=== PATIENT | male | born 1990 | race Caucasian/White ===

== ENCOUNTER 2017-06-07 07:29 | Emergency (ER) | payer MEDICAID, OTHER ==
[2017-06-07 07:34] VITALS: BMI 22.1
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
[2017-06-07] MEDS ORDERED: TDAP Vaccine 0.5 mL Syr IM ONE (07:43)
[2017-06-07] MEDS ORDERED: Amoxicillin-Clav 875-125 mg Tab PO STA (08:39)
--- NOTE | 2017-06-07 09:17 | CT ---
PROCEDURE: CT HEAD WITHOUT CONTRAST. HISTORY: fall, no recollection, nasal trauma COMPARISON: None available. TECHNIQUE: Axial computed tomography images were obtained through the head/brain without intravenous contrast. Radiation dose: Total exam DLP = 990.85 mGy-cm. This CT exam was performed using one or more of the following dose reduction techniques: Automated exposure control, adjustment of the mA and/or kV according to patient size, and/or use of iterative reconstruction technique. FINDINGS: HEMORRHAGE: No intracranial hemorrhage. BRAIN: No mass effect or edema. No atrophy or chronic microvascular ischemic changes. VENTRICLES: Unremarkable. No hydrocephalus. CALVARIUM: Unremarkable. PARANASAL SINUSES: Unremarkable as visualized. No significant inflammatory changes. MASTOID AIR CELLS: Unremarkable as visualized. No inflammatory changes. OTHER FINDINGS: Acute and displaced nasal bone fractures, incompletely visualized. Fracture extends to the bony nasal septum. Associated soft tissue swelling nasal turbinate region likely represents blood IMPRESSION: Acute fractures of the nasal bones and bony nasal septum. No acute intracranial abnormalities. No significant findings to account for the clinical presentation. 1st
--- NOTE | 2017-06-07 09:23 | CT ---
PROCEDURE: CT MAXILLOFACIAL BONES WITHOUT CONTRAST HISTORY: fall, etoh intox overnight, nasal deformities COMPARISON: None TECHNIQUE: Contiguous axial CT images of the maxillofacial bones were obtained. Coronal and sagittal reformats were generated. Radiation dose: Total exam DLP = 960.51 mGy-cm. This CT exam was performed using one or more of the following dose reduction techniques: Automated exposure control, adjustment of the mA and/or kV according to patient size, and/or use of iterative reconstruction technique. FINDINGS: NASAL BONES: Comminuted and bilateral nasal bone fractures. Fracture extends to the bony nasal septum. This fracture is comminuted with large fracture fragments angulated and displaced to the left. ORBITS: Unremarkable. There are no globe or retro Conal abnormalities. PARANASAL SINUSES/ MASTOIDS: Mild ethmoid air cell disease likely related to after mentioned trauma. MAXILLA: Unremarkable. MANDIBLE/ TEMPOROMANDIBULAR JOINTS: Unremarkable. SKULL BASE: Unremarkable. TEMPORAL BONES: Middle ears and mastoid grossly unremarkable. OTHER FINDINGS: None. IMPRESSION: Acute and comminuted fractures nasal bones and bony nasal septum. Marked soft tissue swelling about the nose identified. No additional facial fractures.
[2017-06-07 10:02] VITALS: BP 127/84; PULSE 76; RESP 16; TEMP 98.6; O2SAT 99
== END 2017-06-07 10:03 | disposition home or self-care (01) ==
LOC: ED 07:29
DX: S02.2XXA Fracture of nasal bones, initial encounter for closed fracture (principal); W19.XXXA Unspecified fall, initial encounter; Z23 Encounter for immunization